=== PATIENT | male | born 1965 | race Caucasian/White ===

== ENCOUNTER 2018-05-04 12:42 | Emergency (ER) | payer BC, OTHER ==
[2018-05-04 13:02] VITALS: BP 155/107
--- NOTE | 2018-05-04 13:12 | UC ---
Knee Pain HPI - HPI Summary HPI Summary: 53 y/o male presents to the urgent care c/o Rt knee pain and mild swelling over the patella s/p kneeling on the concrete floor for a long period of time w/o knee pads 2 days ago at work. Pt reports swelling developed yesterday and pain is localized around patella. Pain is 8/10 w/o any radiation wore w/ bending or ambulating. He applied heat, but swelling developed. He took Ibuprofen PO last night to alleviate symptoms. Pt denies previous knee trauma, numbness or tingling sensation over the Rt lower extremity, calf pain, SOB, chest pain, abdominal pain, N/v/D, no Hx of gout. - History of Current Complaint Chief Complaint: UCLowerExtremity Stated Complaint: RT KNEE Time Seen by Provider: 05/04/18 13:10 Hx Obtained From: Patient Onset/Duration: Gradual Onset, Lasting Days - 2 days, Still Present, Worse Since - today Severity Initially: Mild Severity Currently: Moderate Pain Intensity: 8 Pain Scale Used: 0-10 Numeric Character: Sharp Aggravating Factor(s): Movement, Weight Bearing, Stairs, Other - bending knee Alleviating Factor(s): Cold, OTC Meds Associated Signs And Symptoms: Positive: Swelling - mild ove patella. Negative : Redness, Bruising, Fever, Weakness, Numbness, Tingling Able to Bear Weight: Yes - Risk Factors Septic Arthritis Risk Factor: Negative Gout Risk Factor: Negative - Allergies/Home Medications Allergies/Adverse Reactions: Allergies Allergy/AdvReac Type Severity Reaction Status Date / Time No Known Allergies Allergy Verified 05/04/18 13:01 Home Medications: Home Medications Orlanzepine 10 mg PO DAILY 05/04/18 [History Confirmed 05/04/18] PMH/Surg Hx/FS Hx/Imm Hx Previously Healthy: Yes Psychological History: Anxiety - Surgical History Surgical History: None - Family History Known Family History: Positive: Diabetes - Social History Occupation: Employed Full-time Lives: With Family Alcohol Use: None Substance Use Type: None Smoking Status (MU): Never Smoked Tobacco Amount Used/How Often: used to chew Review of Systems All Other Systems Reviewed And Are Negative: Yes Constitutional: Positive: Negative Skin: Positive: Negative Eyes: Positive: Negative ENT: Positive: Negative Respiratory: Positive: Negative Cardiovascular: Positive: Negative Gastrointestinal: Positive: Negative Genitourinary: Positive: Negative Motor: Positive: Negative Neurovascular: Positive: Negative Musculoskeletal: Positive: Decreased ROM - RT knee, Other: - RT knee pain and mild swelling around patella s/p kneeling for a long period Neurological: Positive: Negative Psychological: Positive: Negative Is Patient Immunocompromised?: No Physical Exam - Summary Physical Exam Summary: Vital Signs Reviewed: Yes General: well developed, well nourished male sitting in the examining table w/o any apparent distress Eyes: Positive: Conjunctiva Clear - PERRLA, EOMI, fundi grossly normal ENT: Positive: Normal ENT inspection, Hearing grossly normal, Pharynx normal, TMs normal Neck: Positive: Supple, Nontender, No Lymphadenopathy Respiratory: Positive: Chest nontender, Lungs clear, Normal breath sounds, No respiratory distress Cardiovascular: Positive: RRR, No Murmur, Pulses Normal, Brisk Capillary Refill Abdomen Description: Positive: Nontender, No Organomegaly, Soft. Negative: CVA Tenderness (R), CVA Tenderness (L) Bowel Sounds: Positive: Present Musculoskeletal: Positive: Strength Intact, No Edema, RT Knee: Pt is able to bear weight and ambulate with limping. No surface trauma, positive soft tissue swelling over patella, no obvious effusion. No overlying erythema or warmth. The Rt knee is without obvious asymmetry or deformity when compared with the R knee. Decreased ROM of LF knee due to pain. Moderate tenderness to palpation of the patella, no effusion or ballottement. No tenderness over the infrapatellar tendon. Point tenderness over the medial joint line, No tenderness over the medial or lateral tibial plateaus. No tenderness over the proximal fibular head, No tenderness, fullness or mass of the popliteal fossa. No quadriceps tenderness. No laxity of the ACL. PCL, MCL, or LCL. no collateral ligament laxity to valgus or varus stress. Negative Carleen/Drawer sign. Negative Terri. Distal motor and neurovascular status intact. Neurological Exam: Normal Psychological Exam: Normal Skin Exam: Normal Triage Information Reviewed: Yes Vital Signs: Initial Vital Signs Temp 98.5 F 05/04/18 12:56 Pulse 78 05/04/18 12:56 Resp 18 05/04/18 12:56 BP 155/107 05/04/18 12:56 Pulse Ox 96 05/04/18 12:56 Knee Pain Course/Dx - Course Course Of Treatment: 53 y/o male presents to the urgent care c/o Rt knee pain and mild swelling over the patella s/p kneeling on the concrete floor for a long period of time w/o knee pads 2 days ago at work. Pt reports swelling developed yesterday and pain is localized around patella. Pain is 8/10 w/o any radiation wore w/ bending or ambulating. He applied heat, but swelling developed. He took Ibuprofen PO last night to alleviate symptoms. Pt denies previous knee trauma, numbness or tingling sensation over the Rt lower extremity, calf pain, SOB, chest pain, abdominal pain, N/v/D, no Hx of gout. Hx obtained. Rt knee X-ray ordered, Impression: There is mild medial and patellofemoral compartment osteoarthritis. no acute fracture observed as per radiologist. Pt most likely with a Patelofemoral syndrome and osteoarthritis or Rt knee. Pt knee immobilized with knee immobilizer. Pt given Ibuproen PO by the nurse and Rx same to alleviate symptoms. Pt advised RICE, take medication for pain and to f/u with Orthopedic DR from Sports Medicine for further treatment on his osteoarthritis. D/C instructions explained. Pt understood and agreed w/ plan of care and left the clinic ambulating. - Differential Dx/Diagnosis Differential Diagnosis/HQI/PQRI: Abrasion, Bursitis, Fracture (Closed), Patellofemoral Syndrome, Sprain, Strain, Tendonitis Provider Diagnosis: Right knee pain, Osteoarthritis of right knee, Patella-femoral syndrome, Elevated BP without diagnosis of hypertension Discharge - Sign-Out/Discharge Documenting (check all that apply): Patient Departure - d/c home All imaging exams completed and their final reports reviewed: Yes - Discharge Plan Condition: Stable Disposition: HOME Prescriptions: Ibuprofen TAB* [Motrin TAB* 800 MG] 800 mg PO Q6H PRN #30 tab PRN Reason: knee pain Patient Education Materials: Osteoarthritis (ED), Patellofemoral Pain Syndrome (ED) Forms: *Work Release Referrals: [facility] [place] PHYSICIAN REFERRAL [Outside] - 1 Week [facility] [Provider Group] - 1 Week Additional Instructions: 1-Please take Ibuprofen PO q6-8hrs prn as directed after meals to alleviate pain and swelling. 2-Please apply ice, keep your knee immobilized with the splint. Avoid strenuous exercise or climbing stair or standing for long period of time. 3- Please f/u with Sports Medicine Orthopedic who specialize on osteoarthritis in 1 week if not improvement of symptoms for further evaluation and treatment. 4- Your BP is elevated today. please decrease salt in your diet, monitor BP and if it continues to be elevated please f/u with your PCP for further management. - Billing Disposition and Condition Condition: STABLE Disposition: Home
[2018-05-04] MEDS ORDERED: Ibuprofen TAB* 400 MG PO ONE (13:24)
== END 2018-05-04 14:15 | disposition home or self-care (01) ==
LOC: UCEAST 12:42
DX: M17.11 Unilateral primary osteoarthritis, right knee (principal); M25.561 Pain in right knee; M22.2X1 Patellofemoral disorders, right knee; R03.0 Elevated blood-pressure reading, without diagnosis of hypertension
CPT/HCPCS: 99203; A9270-GY; G0463